=== PATIENT | female | born 1960 | race Caucasian/White ===

== ENCOUNTER 2017-08-25 14:34 | Emergency (ER) | payer OTHER, BC ==
[2017-08-25 14:38] VITALS: BP 149/110; PULSE 94; TEMP 98; BMI 34.3
--- NOTE | 2017-08-25 15:22 | PDOC ---
History of Present Illness - General Chief Complaint: Back Pain Stated Complaint: BACK PAIN History Source: Patient Exam Limitations: No Limitations - History of Present Illness Initial Comments: 08/25/17 15:49 This 56-year-old female presents to the emergency room with complaints of lower back pain. She has history of chronic back pain including back laminectomy to the lumbar sacral area. She recently has twisted and now is complaining of lower back pain. She has been taking 800 of Motrin. She is a workman's comp case and it is taking her a while to get to see her compensation physician. She is scheduled for September 01. No loss of bowel or bladder. Able to ambulate and bear weight. She is limping slightly. Past History - Past Medical History Allergies/Adverse Reactions: Allergies Allergy/AdvReac Type Severity Reaction Status Date / Time Penicillins Allergy Severe Verified 08/25/17 14:38 Sulfa (Sulfonamide Allergy Intermediate Itching Verified 08/25/17 14:38 Antibiotics) [Sulfa(Sulfonamide Antibiotics)] ciprofloxacin [From Cipro] Allergy Verified 08/25/17 14:38 ciprofloxacin HCl Allergy Verified 08/25/17 14:38 [From Cipro] quinines Allergy Intermediate Itching Uncoded 08/25/17 14:38 Home Medications: Ambulatory Orders Levothyroxine [Synthroid -] 150 mcg PO DAILY 09/26/12 Ibuprofen [Motrin -] 800 mg PO TID 01/06/13 Duloxetine HCl [Cymbalta] 200 mg PO DAILY 09/21/15 Pregabalin [Lyrica -] 150 mg PO BID 07/19/16 Tramadol HCl/Acetaminophen [Tramadol-Acetaminophn 37.5-325] 1 each PO ASDIR 07/26 Asthma: Yes HTN: Yes Thyroid Disease: Yes (hypothyroid) - Surgical History Abdominal Surgery: No Cardiac Surgery: No Neurologic Surgery: Yes (total thyroidectomy 2000, tonsilectomy) - Immunization History Td Vaccination: Yes TDAP Vaccination: Yes Immunization Up to Date: Yes - Suicide/Smoking/Psychosocial Hx Smoking Status: No Smoking History: Never smoked Years of Tobacco Use: 25 Have you smoked in the past 12 months: No Number of Cigarettes Smoked Daily: 0 If you are a former smoker, when did you quit?: 2006 Hx Alcohol Use: No Drug/Substance Use Hx: No Substance Use Type: None Hx Substance Use Treatment: No Review of Systems - Review of Systems Able to Perform ROS?: Yes Comments:: 08/25/17 15:49 General statement: Hematology: neg history of bleeding/blood thinners Skin: Neg for lesions, rash, bruising. HEENT: Neg symptoms Respiratory: Neg SOB or difficulty in breathing Cardiac: Neg chest pain GI: Neg pain, n/v : Neg problems on voiding MS: Neg for joint pain/stiffness, no edema Neuro: Neg for LOC, weakness, Endocrine: Neg for excess thirst/hunger, cold/heat intolerance, excess sweating Allergies: Positive for allergies *Physical Exam - Vital Signs Last Vital Signs Temp Pulse Resp BP Pulse Ox 98 F 94 H 16 149/110 98 08/25/17 14:36 08/25/17 14:36 08/25/17 14:36 08/25/17 14:36 08/25/17 14:36 - Physical Exam Comments: 08/25/17 15:50 General Appearance: This well appearing 56-year-old female V/S: hemodynamically stable, afebrile Skin: WNL of pt's skin color, no signs of pallor, mottling, cyanosis Head:symmetrical Eyes: EOM's intact, PERRLA Ears: denies pain Nose: patent Throat: lips, teeth, gums, tongue, buccal mucos pink and moist Lungs: Chest symmetry equal. Cap refill <3 seconds. Lung sounds clear Cardiac: PMI at R 4MCL space, pos S1 and S2, regular rate. Abdomen: Soft, round, nontender : Not observed Muscularskeletal: Gait steady, ambulated in to ER, no edema +PMS Neuro: AAOx3, cognitively intact, speech clear and appropriate. Medical Decision Making - Medical Decision Making 08/25/17 15:50 A she was seen and examined. Patient is found to have a small incision that is well-healed from several years ago of a laminectomy. She is complaining of pain that is not running down either side of her buttocks however it is causing her severe pain and she is leaning forward. At this time I am putting her in for an x-ray and she can have 800 of Motrin and be discharged to follow up with her Workmen's Compensation neurosurgeon/spine physician on September 01. *DC/Admit/Observation/Transfer Diagnosis at time of Disposition: Chronic low back pain Qualifiers: Back pain laterality: bilateral Sciatica presence: without sciatica Qualified Code(s): M54.5 - Low back pain; M54.5 - Low back pain; G89.29 - Other chronic pain; G89.29 - Other chronic pain - Discharge Dispostion Disposition: HOME Condition at time of disposition: Good Admit: No - Referrals Referrals: Caleb Lopez MD [Primary Care Provider] - - Post Discharge Activity Forms/Work/School Notes: Back to Work
== END 2017-08-25 16:03 | disposition home or self-care (01) ==
LOC: JERFT 14:34
DX: M54.5 Low back pain (principal); G89.29 Other chronic pain; J45.909 Unspecified asthma, uncomplicated; I10 Essential (primary) hypertension; E03.9 Hypothyroidism, unspecified
CPT/HCPCS: 72100-TC; 99281-25

== ENCOUNTER 2018-09-13 09:33 | Emergency (ER) | payer BC ==
[2018-09-13] MEDS ORDERED: SODIUM CHLORIDE 1,000 ML IV STA (09:39)
[2018-09-13] MEDS ORDERED: ONDANSETRON 4 MG/2 ML VIAL IVPB ONE (09:39)
[2018-09-13] MEDS ORDERED: KETOROLAC TROMETHAMINE 30 MG/1 ML VIAL IVPUSH ONE (09:39)
[2018-09-13] MEDS ORDERED: HYDROmorphone HCL CARPU-JECT 1 MG/1 ML DISP.SYRIN IVPUSH ONE ×4 (09:47→11:03)
[2018-09-13 09:52] VITALS: BMI 37.0
[2018-09-13 10:09] LABS: BASO % 0.9 % (0-2.0); EOS % 1.8 % (0-4.5); HEMATOCRIT 41.7 % (32.4-45.2); HEMOGLOBIN 13.9 GM/dl (10.7-15.3); LYMPH % 22.1 % (8-40); MCH 28.8 pg (25.7-33.7); MCHC 33.5 g/dl (32.0-36.0); MEAN CELL VOLUME 86.2 fl (80-96); MONO % 5.5 % (3.8-10.2); NEUT % 69.7 % (42.8-82.8); PLATELET COUNT 472 K/MM3 (134-434); RBC 4.84 M/mm3 (3.60-5.2); WHITE BLOOD COUNT 8.6 K/mm3 (4.0-10.8)
[2018-09-13 10:12] LABS: ALBUMIN 4.4 g/dl (3.5-5.0); ALK PHOS 84 U/L (32-92); ANION GAP 13 MMOL/L (8-16); BILIRUBIN,TOTAL 0.8 mg/dl (0.2-1.0); BLOOD UREA NITROGEN 18 mg/dl (7-18); CALCIUM 9.3 mg/dl (8.4-10.2); CHLORIDE 103 mmol/L (98-107); CO2 19 mmol/L (22-28); CREATININE 0.8 mg/dl (0.6-1.3); GLUCOSE,RANDOM 161 mg/dl (74-106); POTASSIUM 4.7 mmol/L (3.5-5.1); SGOT/AST 27 U/L (10-42); SGPT/ALT 20 U/L (10-40); SODIUM 135 mmol/L (136-145)
[2018-09-13 10:22] VITALS: TEMP 97.8
[2018-09-13 10:24] LABS: PH,URINE >= 9.0 (4.5-8); URINE APPEARANCE Clear; URINE BILIRUBIN Negative (NEGATIVE); URINE COLOR Yellow; URINE GLUCOSE (UA) Negative (NEGATIVE); URINE KETONE 1+ (NEGATIVE); URINE LEUK ESTERASE Negative (NEGATIVE); URINE NITRITE Negative (NEGATIVE); URINE PROTEIN 1+ (NEGATIVE); URINE UROBILINOGEN 0.2 (0.2-1.0)
[2018-09-13 11:55] VITALS: BP 153/73; PULSE 65
--- NOTE | 2018-09-13 12:06 | PDOC ---
History of Present Illness - General Chief Complaint: Pain, Acute Stated Complaint: ABDOMINAL PAIN Time Seen by Provider: 09/13/18 09:38 History Source: Patient, Family Exam Limitations: Clinical Condition - History of Present Illness Initial Comments: 09/13/18 12:06 CHIEF COMPLAINT: Left groin pain, onset early this morning HISTORY OF PRESENT ILLNESS: 57-year-old female with a prior history of hypertension, diabetes, asthma, and kidney stones. Patient was feeling fine until early this morning when she awoke from sleep with severe pain in the left lower abdomen radiating to the groin and the labial region. The pain was constant, however, it was waxing and waning in severity. There was nausea with vomiting of clear liquid. The patient also became diaphoretic in the setting of severe pain. Her brought her to the emergency department. She denies fever or chills. She states it was difficult to pass urine this morning. There has been no gross hematuria. After coming to the ED and receiving pain medication, she was able to pass urine without difficulty. There is no dysuria or frequency. There is no flank pain or back pain. Patient had a normal bowel movement yesterday and then again this morning. No diarrhea or constipation. REVIEW OF SYSTEMS: GENERAL/CONSTITUTIONAL: No fever or chills. No weakness. No weight change. HEAD, EYES, EARS, NOSE AND THROAT: No change in vision. No ear pain or discharge. No sore throat. CARDIOVASCULAR: No chest pain or shortness of breath. RESPIRATORY: No cough, wheezing, or hemoptysis. GASTROINTESTINAL: Positive nausea and vomiting. Normal bowel movements yesterday and today. No rectal bleeding. GENITOURINARY: No hematuria. No urgency or frequency. Positive difficulty urinating this morning in the setting of severe pain, which has now resolved. MUSCULOSKELETAL: No joint or muscle swelling or pain. No neck or back pain. SKIN AND BREASTS: No rash or easy bruising. NEUROLOGIC: No headache, vertigo, loss of consciousness, or loss of sensation. PSYCHIATRIC: Positive history of depression. ENDOCRINE: No increased thirst. No abnormal weight change. HEMATOLOGIC/LYMPHATIC: No anemia, easy bleeding, or history of blood clots. ALLERGIC/IMMUNOLOGIC: No hives or skin allergy. No latex allergy. Past History - Past Medical History Allergies/Adverse Reactions: Allergies Allergy/AdvReac Type Severity Reaction Status Date / Time Penicillins Allergy Severe Verified 09/13/18 11:26 Sulfa (Sulfonamide Allergy Intermediate Itching Verified 09/13/18 11:26 Antibiotics) [Sulfa(Sulfonamide Antibiotics)] ciprofloxacin [From Cipro] Allergy Verified 09/13/18 11:26 ciprofloxacin HCl Allergy Verified 09/13/18 11:26 [From Cipro] quinines Allergy Intermediate Itching Uncoded 09/13/18 11:26 Home Medications: Ambulatory Orders Ibuprofen [Motrin -] 800 mg PO BID 01/06/13 Albuterol Sulfate Inhaler - [Ventolin HFA Inhaler -] 1 - 2 inh PO QID PRN Duloxetine HCl [Cymbalta] 30 mg PO BID 09/13/18 Fluticasone/Salmeterol [Advair 250-50 Diskus] 1 each IH DAILY 09/13/18 Levothyroxine Sodium [Synthroid] 137 mcg PO DAILY 09/13/18 Lisinopril 10 mg PO HS 09/13/18 Naproxen [Naprosyn -] 375 mg PO BID PRN #20 tablet 09/13/18 Oxycodone HCl/Acetaminophen [Percocet 5-325 mg Tablet] 1 tab PO Q4H PRN #8 tablet MDD 6 09/13/18 Tamsulosin HCl [Flomax] 0.4 mg PO DAILY #7 cap.er.24h 09/13/18 Tiotropium Nora [Spiriva] 18 mcg IH HS 09/13/18 Tizanidine HCl [Zanaflex (Nf) -] 2 mg PO HS 09/13/18 Asthma: Yes COPD: No HTN: Yes Kidney Stones: Yes Psychiatric Problems: Yes Thyroid Disease: Yes (hypothyroid) - Surgical History Abdominal Surgery: No Cardiac Surgery: No Neurologic Surgery: Yes (total thyroidectomy 2000, tonsilectomy) - Immunization History Td Vaccination: Yes TDAP Vaccination: Yes Immunization Up to Date: Yes - Suicide/Smoking/Psychosocial Hx Smoking Status: No Smoking History: Former smoker Years of Tobacco Use: 25 Have you smoked in the past 12 months: No Number of Cigarettes Smoked Daily: 0 If you are a former smoker, when did you quit?: 2006 Information on smoking cessation initiated: No Hx Alcohol Use: No Drug/Substance Use Hx: No Substance Use Type: None Hx Substance Use Treatment: No *Physical Exam - Vital Signs Last Vital Signs Temp Pulse Resp BP Pulse Ox 97.8 F 65 18 153/73 98 09/13/18 10:15 09/13/18 11:50 09/13/18 11:50 09/13/18 11:50 09/13/18 11:50 - Physical Exam Comments: 09/13/18 12:09 GENERAL: The patient is awake, alert, and fully oriented, with acute distress on arrival secondary to severe pain. The pain improved after medication and the patient became comfortable. HEAD: Normal with no signs of trauma. EYES: Pupils equal, round and reactive to light, extraocular movements intact, sclera anicteric, conjunctiva clear. ENT: Ears normal, nares patent, oropharynx clear without exudates. Moist mucous membranes. NECK: Normal range of motion, supple without lymphadenopathy, JVD, or masses. LUNGS: Breath sounds equal, clear to auscultation bilaterally. No wheezes, and no crackles. HEART: Regular rate and rhythm, normal S1 and S2 without murmur, rub or gallop. ABDOMEN: Soft, mild tenderness to palpation in the left groin and left lower quadrant region. Normal bowel sounds. No guarding or rebound. No hernia. EXTREMITIES: Normal range of motion, no edema. No clubbing or cyanosis. No cords, erythema, or tenderness. NEUROLOGICAL: Cranial nerves II through XII grossly intact. Normal speech, normal gait. PSYCH: Normal mood, normal affect. SKIN: Warm, Dry, normal turgor, no rashes or lesions noted. ED Treatment Course - LABORATORY CBC & Chemistry Diagram: 09/13/18 09:35 09/13/18 09:35 - ADDITIONAL ORDERS Additional order review: Laboratory Results 09/13/18 09/13/18 09:38 09:35 Sodium 135 L Potassium 4.7 Chloride 103 Carbon Dioxide 19 L Anion Gap 13 BUN 18 Creatinine 0.8 Creat Clearance w eGFR > 60 Random Glucose 161 H Calcium 9.3 Total Bilirubin 0.8 AST 27 ALT 20 Alkaline Phosphatase 84 Total Protein 7.0 Albumin 4.4 Urine Color Yellow Urine Appearance Clear Urine pH >= 9.0 H Ur Specific [place] 1.015 Urine Protein 1+ H Urine Glucose (UA) Negative Urine Ketones 1+ H Urine Blood Trace-intact H Urine Nitrite Negative Urine Bilirubin Negative Urine Urobilinogen 0.2 Ur Leukocyte Esterase Negative 09/13/18 09:35 RBC 4.84 MCV 86.2 MCHC 33.5 RDW 13.0 MPV 8.0 Neutrophils % 69.7 Lymphocytes % 22.1 Monocytes % 5.5 Eosinophils % 1.8 Basophils % 0.9 - RADIOLOGY Radiology Studies Ordered: Category Date Time Status KIDNEY / RENAL US [US] Stat Ultrasound 09/13/18 10:42 Ordered - Medications Given in the ED: ED Medications Discontinued Medications Generic Name Dose Route Start Last Admin Trade Name Freq PRN Reason Stop Dose Admin Hydromorphone HCl 0.5 mg 09/13/18 09:47 09/13/18 09:47 Dilaudid Injection - IVPUSH 09/13/18 09:48 0.5 mg ONCE ONE Administration Hydromorphone HCl 0.5 mg 09/13/18 10:37 09/13/18 10:05 Dilaudid Injection - IVPUSH 09/13/18 10:38 0.5 mg ONCE ONE Administration Hydromorphone HCl 0.5 mg 09/13/18 10:44 09/13/18 10:47 Dilaudid Injection - IVPUSH 09/13/18 10:45 0.5 mg ONCE ONE Administration Hydromorphone HCl 0.5 mg 09/13/18 11:03 09/13/18 11:05 Dilaudid Injection - IVPUSH 09/13/18 11:04 0.5 mg ONCE ONE Administration Sodium Chloride 1,000 mls @ 1,000 mls/hr 09/13/18 09:39 09/13/18 09:35 Normal Saline - IV 09/13/18 10:38 1,000 mls/hr ASDIR STA Administration Ketorolac Tromethamine 30 mg 09/13/18 09:39 09/13/18 09:37 Toradol Injection - IVPUSH 09/13/18 09:40 30 mg ONCE ONE Administration Ondansetron HCl 8 mg 09/13/18 09:39 09/13/18 09:40 Zofran Injection IVPB 09/13/18 09:40 8 mg ONCE ONE Administration Medical Decision Making - Medical Decision Making 09/13/18 12:11 57-year-old female with history of asthma, hypertension, diabetes and kidney stones presents with acute onset of severe pain in the left groin region radiating to the labia. The pain is been constant but has been waxing and waning. She also had difficulty passing urine in the setting of pain. The clinical symptoms seem most suggestive of acute renal colic. There is mild tenderness on palpation of the lower abdomen. White blood cell count is normal at 8.6. Chemistry is notable for modest hyperglycemia to 161. The urinalysis is notable for trace hematuria. Creatinine is normal at 0.8. Patient will have ultrasound to evaluate for possible hydronephrosis. Ultrasound performed and reviewed by radiology as well as myself. Images show small punctate renal stones and mild left hydronephrosis consistent with left- sided renal colic. On repeat examination at 2 PM, patient is comfortable with pain score of 1/10. She denies any nausea. There is no complaint of fever or chills. She states she is feeling well and would like to go home. Patient will go home with a strainer. She already has an established relationship with Dr. Conrado Barker, urology and will call him tomorrow to arrange follow-up. Patient will be treated with Naprosyn and Percocet for pain control as needed. She states that if she has any signs of infection such as fever or weakness, she will return immediately for emergency care. Labs reviewed: Laboratory Results - last 24 hr 09/13/18 09/13/18 09/13/18 09:35 09:35 09:38 WBC 8.6 RBC 4.84 Hgb 13.9 Hct 41.7 MCV 86.2 MCH 28.8 MCHC 33.5 RDW 13.0 Plt Count 472 H MPV 8.0 Absolute Neuts (auto) 5.9 Neutrophils % 69.7 Lymphocytes % 22.1 Monocytes % 5.5 Eosinophils % 1.8 Basophils % 0.9 Sodium 135 L Potassium 4.7 Chloride 103 Carbon Dioxide 19 L Anion Gap 13 BUN 18 Creatinine 0.8 Creat Clearance w eGFR > 60 Random Glucose 161 H Calcium 9.3 Total Bilirubin 0.8 AST 27 ALT 20 Alkaline Phosphatase 84 Total Protein 7.0 Albumin 4.4 Urine Color Yellow Urine Appearance Clear Urine pH >= 9.0 H Ur Specific [place] 1.015 Urine Protein 1+ H Urine Glucose (UA) Negative Urine Ketones 1+ H Urine Blood Trace-intact H Urine Nitrite Negative Urine Bilirubin Negative Urine Urobilinogen 0.2 Ur Leukocyte Esterase Negative *DC/Admit/Observation/Transfer Diagnosis at time of Disposition: Renal colic on left side - Discharge Dispostion Disposition: HOME Condition at time of disposition: Improved Decision to Admit order: No - Prescriptions Prescriptions: Naproxen [Naprosyn -] 375 mg PO BID PRN #20 tablet PRN Reason: Pain Oxycodone HCl/Acetaminophen [Percocet 5-325 mg Tablet] 1 tab PO Q4H PRN #8 tablet MDD 6 PRN Reason: Severe Pain Tamsulosin HCl [Flomax] 0.4 mg PO DAILY #7 cap.er.24h - Referrals Referrals: Conrado Talbot MD [Staff Physician] - Call tomorrow - Patient Instructions Printed Discharge Instructions: DI for Kidney Stones Additional Instructions: You were evaluated today for pain from a kidney stone. The ultrasound shows mild swelling in the left kidney from the stone. The blood tests show good kidney function and no signs of infection. You are advised to drink plenty of fluids, strain your urine to see when the stone passes, and call Dr. Conrado Barker tomorrow to schedule your follow-up appointment. Take Flomax once a day to help pass the stone. If you develop fever or chills, return to the hospital emergency department immediately. If you have pain, take Naprosyn and Percocet as needed. The prescriptions have been sent electronically to the [facility] pharmacy in [place]. Return to the emergency department for any severe or progressive symptoms. - Post Discharge Activity
[2018-09-13] MEDS ORDERED: TAMSULOSIN HCL 0.4 MG CAP PO ONE (12:22)
[2018-09-13 12:53] LABS: URINE BACTERIA NONE SEEN /hpf (NEGATIVE); URINE RBC 0-2 /hpf (0-3); URINE WBC 0-2 (0-5)
== END 2018-09-13 14:29 | disposition home or self-care (01) ==
LOC: FER 09:33
PROC: 3E033NZ Introduction of Analgesics, Hypnotics, Sedatives into Peripheral Vein, Percutaneous Approach (ICD-10-PCS; principal; 2018-09-13)
PROC: 3E0333Z Introduction of Anti-inflammatory into Peripheral Vein, Percutaneous Approach (ICD-10-PCS; 2018-09-13)
PROC: 3E033GC Introduction of Other Therapeutic Substance into Peripheral Vein, Percutaneous Approach (ICD-10-PCS; 2018-09-13)
PROC: 3E0337Z Introduction of Electrolytic and Water Balance Substance into Peripheral Vein, Percutaneous Approach (ICD-10-PCS; 2018-09-13)
DX: N23 Unspecified renal colic (principal); I10 Essential (primary) hypertension; J45.909 Unspecified asthma, uncomplicated; E11.9 Type 2 diabetes mellitus without complications; Z87.891 Personal history of nicotine dependence; E03.9 Hypothyroidism, unspecified
CPT/HCPCS: 36415; 76775-TC; 80053; 81003; 81015; 85025; 99284-25; J7030

== ENCOUNTER 2019-09-07 10:20 | Day surgery (SDC) | payer BC ==
[2019-09-06 15:11] VITALS: BMI 37.3
[2019-09-07 11:27] VITALS: TEMP 98
[2019-09-07 12:35] VITALS: BP 114/76; PULSE 60
--- NOTE | 2019-09-09 15:51 | PATH ---
Surgical Pathology Report Patient Name: JUAN FRAGA [place]. Rec. #: [id number] /Age/Gender: 1960 (Age: 58) / F Account: [id number] Location: U-ENDOSCOPY Taken: 09/07/2019 Received: 09/07/2019 Reported: 09/09/2019 Physicians: Cyrus Mendoza M.D. Specimen(s) Received ANTRUM Clinical History GERD Postoperative diagnosis: Hiatal hernia Final Diagnosis STOMACH, ANTRUM, BIOPSY: GASTRIC ANTRAL MUCOSA WITH MILD CHRONIC GASTRITIS. IMMUNOHISTOCHEMICAL STAIN FOR H. PYLORI IS NEGATIVE. Electronically Signed Juani Tripp M.D. Gross Description Received in formalin, labeled "biopsy antrum" are 2 mart, irregular portions of soft tissue measuring 0.2 and 0.4 cm. in greatest dimension. The specimens are submitted in toto in one cassette. DL/09/07/2019 saudi/09/07/2019
== END 2019-09-07 13:00 | disposition home or self-care (01) ==
LOC: JASU-ENDO 10:20
PROVIDERS: ATTEND Internal Medicine Gastroenterology
PROC: 0DB68ZX Excision of Stomach, Via Natural or Artificial Opening Endoscopic, Diagnostic (ICD-10-PCS; principal; 2019-09-07 11:15)
DX: K29.50 Unspecified chronic gastritis without bleeding (principal); I10 Essential (primary) hypertension; E03.9 Hypothyroidism, unspecified; K21.9 Gastro-esophageal reflux disease without esophagitis; G47.30 Sleep apnea, unspecified; K44.9 Diaphragmatic hernia without obstruction or gangrene

== ENCOUNTER 2019-12-01 11:43 | Day surgery (SDC) | payer BC, OTHER ==
--- NOTE | 2019-10-25 13:42 | HP ---
DATE OF ADMISSION: 12/01/2019 DATE OF DICTATION: 10/05/2019 Patient to be admitted through the [facility] Surgical [facility] either at [facility] or at [facility] in the near future; date to be determined. HISTORY: This is a 58-year-old woman who presents for excision of a palpable soft tissue abnormality of her right lower back, which the patient states is intermittently painful. According to the patient, she initially noticed the mass a year ago. It was pea sized at that time. The mass is now larger and more frequently associated with discomfort. PAST MEDICAL HISTORY: Significant for GERD, asthma, hypertension, arthritis, eye disease, an underlying anxiety/depressive disorder, thyroid problem, and fibromyalgia. PAST SURGICAL HISTORY: Significant for tonsillectomy, total thyroidectomy, low back neurosurgical procedures for a synovial cyst. ALLERGIES: PENICILLIN, SULFA DRUGS, QUININE, CIPRO. CURRENT MEDICATIONS: Synthroid, lisinopril, tramadol, tizanidine. SOCIAL HISTORY: Positive tobacco E-cigarettes, not quantified. Alcohol: Nil. FAMILY HISTORY: Father , history of lung cancer at age 45. Mother , history of diabetes and hypertension. Siblings with diabetes, rheumatoid arthritis, fibromyalgia. REVIEW OF SYSTEMS: Otherwise nil. PHYSICAL EXAMINATION: With the patient examined in erect position, there is a palpable 1.5 x 2.5 cm soft tissue mass of the right lower back, which is tender on palpation. There are no satellite lesions or regional lymphadenopathy. 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 PLAN: I have agreed to excision as the patient is convinced that that is contributing to her discomfort. I have taken the liberty of suggesting she get an ultrasound evaluation preoperatively; for which she is amenable. I have explained to the patient that I do not feel that her back pain is related to the soft tissue mass. Indications, alternatives, possible complications reviewed. Consent obtained. Patient will be seen preoperatively by Dr. Caleb Lopez. Please refer to his notes for those medical details. MARI DYER M.D. [id number] cc: Caleb Lopez MD
[2019-11-15 13:56] VITALS: BMI 38.6
[2019-12-01] MEDS ORDERED: LIDOCAINE 1%/EPI 1:100000 (20 ML MULTI DOSE VIAL) ONE (14:40)
[2019-12-01] MEDS ORDERED: MIDAZOLAM HCL 2 MG/2 ML SINGLE DOSE VIAL ONE ×2 (14:52→15:00)
[2019-12-01] MEDS ORDERED: PROPOFOL 20 ML ONE (14:53)
[2019-12-01] MEDS ORDERED: LIDOCAINE 1%/EPI 1:100000 (50 ML MULTI DOSE VIAL) NR ONE (15:00)
[2019-12-01] MEDS ORDERED: oxyCODONE HCL 5 MG TABLET PO PRN ×2 (15:07)
[2019-12-01] MEDS ORDERED: ONDANSETRON 4 MG/2 ML VIAL IVPUSH PRN (15:07)
[2019-12-01] MEDS ORDERED: LACTATED RINGERS SOLUTION 1,000 ML IV SCH (15:15)
[2019-12-01] MEDS ORDERED: ACETAMINOPHEN 1000 MG/100 ML VIAL (NON FORMULARY) IVPB ONE (15:26)
[2019-12-01 15:35] VITALS: TEMP 98
[2019-12-01 16:54] VITALS: BP 126/78; PULSE 78
--- NOTE | 2019-12-02 14:14 | OP ---
DATE OF OPERATION: 12/01/2019 PREOPERATIVE DIAGNOSIS: Soft tissue mass, right midback. POSTOPERATIVE DIAGNOSIS: Subfacial lipomatous neoplasia, right midback. PROCEDURE: Excision subfacial lipomatous neoplasia, right midback/intermediate wound closure (4 cm). SURGEON: Mari Clark M.D. ANESTHESIOLOGIST: Dhaval Steward M.D. ANESTHESIA: Local with IV Sedation. HISTORY: This is a 58-year-old woman who presents for excision of a palpable soft tissue abnormality of the right [id number] back, which is intermittently painful and which according to the patient, she initially noticed about a year ago. The lesion was smaller then, but has become progressively larger in size. I explained to the patient that I felt the lesion was consistent with lipomatous tumor and that I did not think it was related to any discomfort that she has had. She has had low back neurological intervention for synovial cysts. Indications, alternatives, possible complications reviewed. Consent obtained. PROCEDURE: With the patient in the prone position, after IV sedation, the right [id number] back region was prepped and draped with Betadine. Lidocaine 1% with epinephrine was used to infiltrate the soft tissue in a field block at the intended level of excision. A 4-cm, transverse incision was directly made over the palpable abnormality and deepened into the subcutaneous space. Deep to the [place] subcutaneous tissue was an obvious lipomatous neoplasia. It was freed from its bed and followed into its posterior aspect, where it was found to be emanating through several fibers of the musculature of the right midback. Without disrupting additional muscle, the lipomatous neoplasia, which measured approximately 2.5-3 cm in size, was freed from its attachment in the muscle and ultimately delivered. After adequate hemostasis, the wound was closed in layers. The fascia of the deeper muscle was closed with interrupted 3-0 chromic sutures. The subcutaneous space was closed with interrupted 3-0 chromic sutures. The subcuticular layer was closed using subcuticular 4-0 Biosyn sutures. Mastisol applied. Steri-Strips applied. Procedure terminated. Patient tolerated the procedure and the procedure was terminated. COUNTS: Needle and instrument count correct. ESTIMATED BLOOD LOSS: Minimal. SPECIMEN: Subfascial lipomatous neoplasia, right midback. DRAINS: None. IMPLANTS: None. MARI CLARK M.D. [id number] cc: Caleb Lopez MD MTDD
--- NOTE | 2019-12-03 13:30 | PATH ---
Surgical Pathology Report Patient Name: JUAN FRAGA [facility]. Rec. #: [id number] /Age/Gender: 1960 (Age: 59) / F Account: [id number] Location: [facility] AMBULATORY Taken: 12/01/2019 Received: 12/01/2019 Reported: 12/03/2019 Physicians: Rikki Clark M.D. Specimen(s) Received SOFT TISSUE MASS RIGHT FLANK Clinical History Benign neoplasm of connective/soft tissue of trunk Final Diagnosis SOFT TISSUE MASS, MID FLANK, RIGHT, EXCISION: MATURE FIBROADIPOSE TISSUE CONSISTENT WITH LIPOMA. Electronically Signed Juani Tripp M.D. Gross Description Received in formalin labeled "soft tissue mass right mid flank" is a 2.2 x 1.5 x 0.9 cm portion of yellow, lobulated adipose tissue. Sectioning reveals homogeneous yellow, smooth fat. No areas of hemorrhage or necrosis are identified. [employer] sections are submitted in one cassette. /12/02/2019 saudi/12/02/2019
== END 2019-12-01 16:50 | disposition home or self-care (01) ==
LOC: FASU 11:43
PROVIDERS: ATTEND Surgery
PROC: 0KBF0ZZ Excision of Right Trunk Muscle, Open Approach (ICD-10-PCS; principal; 2019-12-01 15:00)
DX: D17.9 Benign lipomatous neoplasm, unspecified (principal)
CPT/HCPCS: 88304-TC; J0131

== ENCOUNTER 2021-01-09 10:20 | Emergency (ER) | payer BC ==
[2021-01-09 10:32] VITALS: BP 154/95; PULSE 82; TEMP 99.3; BMI 34.0
[2021-01-09] MEDS ORDERED: LIDOCAINE 5% TOPICAL PATCH TP ONE (10:50)
[2021-01-09] MEDS ORDERED: ACETAMINOPHEN 325 MG TABLET (FP) PO ONE (10:50)
[2021-01-09] MEDS ORDERED: LIDOCAINE 5% TOPICAL PATCH ONE (10:54)
[2021-01-09] MEDS ORDERED: ACETAMINOPHEN 325 MG TABLET (FP) ONE (10:54)
[2021-01-09] MEDS ORDERED: LIDOCAINE PATCH REMOVAL MC SCH (22:00)
== END 2021-01-09 11:50 | disposition home or self-care (01) ==
LOC: FER 10:20
DX: S20.211A Contusion of right front wall of thorax, initial encounter (principal)
CPT/HCPCS: 71101-TC-RT-FY; 99283-25

== ENCOUNTER 2024-08-02 19:33 | Emergency (ER) | payer BC ==
[2024-08-02 20:15] VITALS: BP 152/89; PULSE 75; RESP 17; TEMP 98.2; BMI 33.4
[2024-08-02 20:30] LABS: HEMATOCRIT 41.2 % (32.4-45.2); HEMOGLOBIN 13.2 G/dL (10.7-15.3); MCH 28.2 pg (25.7-33.7); MCHC 32.1 g/dl (32.0-36.0); MEAN CELL VOLUME 87.8 fl (80-96); MEAN PLT VOLUME 7.3 fl (7.5-11.1); PLATELET COUNT 382.8 10^3/uL (134-434); RBC 4.69 10^6/uL (3.60-5.2); RDW 14.7 % (11.6-15.6)
[2024-08-02] MEDS ORDERED: FAMOTIDINE 20 MG/50 ML IVPB 20 MG/50 ML MG IVPB ONE (20:30)
[2024-08-02] MEDS ORDERED: ASPIRIN 81 MG CHEWABLE TABLETS ONE (20:30)
[2024-08-02] MEDS ORDERED: ACETAMINOPHEN 500 MG TABLET (FP) ONE (20:30)
[2024-08-02 20:36] LABS: PLATELET ESTIMATE ADEQUATE
[2024-08-02] MEDS: ACETAMINOPHEN 500 MG TABLET (FP) PO ONE (20:46)
[2024-08-02] MEDS: ASPIRIN 81 MG CHEWABLE TABLETS PO ONE (20:46)
[2024-08-02] MEDS: FAMOTIDINE 20 MG/50 ML IVPB 20 MG in PREMIX 50 IVPB ONE (20:46)
[2024-08-02 20:49] LABS: ALBUMIN 4.4 g/dl (3.4-5.0); BILIRUBIN,TOTAL 0.4 mg/dl (0.2-1); CALCIUM 9.5 mg/dl (8.5-10.1); CREATININE 0.7 mg/dl (0.6-1.3); POTASSIUM 4.3 mmol/L (3.5-5.1); TOT PROT 6.5 g/dl (6.4-8.2)
[2024-08-02] MEDS ORDERED: oxyCODONE HCL 5 MG TABLET ONE (21:23)
[2024-08-02] MEDS: oxyCODONE HCL 5 MG TABLET PO ONE (21:46)
== END 2024-08-02 23:32 | disposition home or self-care (01) ==
LOC: FER 19:33
PROC: 3E033GC Introduction of Other Therapeutic Substance into Peripheral Vein, Percutaneous Approach (ICD-10-PCS; principal; 2024-08-02)
DX: R07.9 Chest pain, unspecified (principal); K08.89 Other specified disorders of teeth and supporting structures; R11.0 Nausea
CPT/HCPCS: 36415; 71046-TC-FY; 80053; 83690; 84484; 85027; 93005; 99285-25